=== PATIENT | male | born 1970 | race Caucasian/White ===

== ENCOUNTER 2017-05-01 08:40 | Emergency (ER) | payer MEDICAID ==
[2017-05-01] MEDS: TETRACAINE 0.5% 4 ML OPH LEFT EYE (09:30)
[2017-05-01] MEDS: FLUORESCEIN STRIP LEFT EYE (10:00)
== END 2017-05-01 09:45 | disposition home or self-care (01) ==
LOC: FTE 08:40
DX: K64.9 Unspecified hemorrhoids (principal); H57.9 Unspecified disorder of eye and adnexa; R40.2142 Coma scale, eyes open, spontaneous, at arrival to emergency department; R40.2252 Coma scale, best verbal response, oriented, at arrival to emergency department; R40.2362 Coma scale, best motor response, obeys commands, at arrival to emergency department
CPT/HCPCS: 99283; Z7502

== ENCOUNTER 2017-08-29 09:07 | Emergency (ER) | payer MEDICAID | END 2017-08-29 09:51 | disposition home or self-care (01) | LOC: FTE 09:07 | DX: K64.4 Residual hemorrhoidal skin tags (principal) | CPT/HCPCS: 99284; Z7502 ==